=== PATIENT | female | born 1975 | race Caucasian/White ===

== ENCOUNTER 2016-08-12 02:41 | Emergency (ER) | payer MEDICARE ==
[2016-08-12 03:13] LABS: BASO # 0.1 10_X3_uL (0.0-0.1); BASO % 0.7 % (0.1-1.2); EOS # 0.1 10_X3_uL (0.0-0.4); EOS % 1.7 % (0.7-5.8); GRAN # 3.4 10_X3_uL (1.6-6.1); GRAN % 48.5 % (34.0-71.1); HEMATOCRIT 43.1 % (34-45); HEMOGLOBIN 13.9 g/dL (11.2-15.7); LYMPH # 2.5 10_X3_uL (1.2-3.7); LYMPH % 36.4 % (19.3-51.7); MEAN CORPUSCULAR HEMOGLOBIN 30.2 pg (27.0-33.0); MEAN CORPUSCULAR HGB CONC 32.3 g/dL (32.0-36.0); MEAN CORPUSCULAR VOLUME 93.7 fL (79-95); MEAN PLATELET VOLUME 9.4 fl (7.5-11.5); MONO # 0.9 10_X3_uL (0.2-0.9); MONO % 12.7 % (4.7-12.5); PLATELET COUNT 266 x10_3/uL (182-369); WHITE BLOOD COUNT 6.9 x10_3/uL (4.0-10.0)
[2016-08-12 03:13] LABS: URINE BILIRUBIN NEGATIVE (NEGATIVE); URINE BLOOD 1+ (NEGATIVE); URINE GLUCOSE (UA) NORMAL (NORMAL); URINE KETONE TRACE (NEGATIVE); URINE LEUKOCYTE ESTERASE TRACE (NEGATIVE); URINE NITRATE NEGATIVE (NEGATIVE); URINE PROTEIN TRACE (NEGATIVE); UROBILINOGEN NORMAL mg/dL (<1.0)
[2016-08-12 03:26] LABS: URINE BACTERIA FEW (NONE SEEN); URINE MUCUS TRACE; URINE SQUAMOUS EPITHELIAL CELL 0-10 /[HPF] (NONE SEEN)
[2016-08-12 03:29] LABS: ALBUMIN 4.4 gm/dL (3.4-5.0); ALKALINE PHOSPHATASE 66 U/L (50-136); ALT/SGPT 15 U/L (3.5-33.9); AST/SGOT 10 U/L (7.04-26.96); BLOOD UREA NITROGEN 19 mg/dL (7-18); CALCIUM 9.5 mg/dL (8.7-10.7); CARBON DIOXIDE 24 mmol/L (21-32); CREATININE 0.9 mg/dL (0.6-1.3); GLUCOSE,RANDOM 98 mg/dL (70-99); POTASSIUM 4.2 mmol/L (3.5-5.1); SODIUM 144 mmol/L (136-145); TOTAL PROTEIN 7.1 gm/dL (6.4-8.2)
== END 2016-08-12 05:30 | disposition home or self-care (01) ==
LOC: ER 02:41
PROVIDERS: General Practice
DX: N39.0 Urinary tract infection, site not specified (principal); R10.31 Right lower quadrant pain; R10.32 Left lower quadrant pain; R10.9 Unspecified abdominal pain; F11.21 Opioid dependence, in remission; F17.210 Nicotine dependence, cigarettes, uncomplicated; Z79.899 Other long term (current) drug therapy; R00.2 Palpitations
CPT/HCPCS: 36415; 80053; 81001; 81025; 85025; 87086; 87186; 96374; 99070; 99284-25; J7040; Q9967

== ENCOUNTER 2016-09-02 18:35 | Emergency (ER) | payer MEDICARE ==
[2016-09-02 19:11] LABS: BASO % 0.5 % (0.1-1.2); EOS # 0.1 10_X3_uL (0.0-0.4); EOS % 1.5 % (0.7-5.8); GRAN # 4.8 10_X3_uL (1.6-6.1); GRAN % 61.3 % (34.0-71.1); HEMATOCRIT 40.5 % (34-45); HEMOGLOBIN 13.9 g/dL (11.2-15.7); LYMPH # 2.2 10_X3_uL (1.2-3.7); LYMPH % 28.4 % (19.3-51.7); MEAN CORPUSCULAR HEMOGLOBIN 30.9 pg (27.0-33.0); MEAN CORPUSCULAR HGB CONC 34.3 g/dL (32.0-36.0); MEAN PLATELET VOLUME 8.8 fl (7.5-11.5); MONO # 0.7 10_X3_uL (0.2-0.9); MONO % 8.3 % (4.7-12.5); PLATELET COUNT 311 x10_3/uL (182-369); RED CELL DISTRIBUTION WIDTH 13.6 % (11.7-14.4); WHITE BLOOD COUNT 7.9 x10_3/uL (4.0-10.0)
[2016-09-02 19:26] LABS: ALBUMIN 4.2 gm/dL (3.4-5.0); ALKALINE PHOSPHATASE 76 U/L (50-136); ALT/SGPT 37 U/L (3.5-33.9); AST/SGOT 34 U/L (7.04-26.96); BILIRUBIN,TOTAL 0.91 mg/dL (0.0-1.0); BLOOD UREA NITROGEN 13 mg/dL (7-18); CALCIUM 9.2 mg/dL (8.7-10.7); CARBON DIOXIDE 25 mmol/L (21-32); CREATININE 0.7 mg/dL (0.6-1.3); GLUCOSE,RANDOM 110 mg/dL (70-99); POTASSIUM 3.2 mmol/L (3.5-5.1); SODIUM 139 mmol/L (136-145); TOTAL PROTEIN 6.9 gm/dL (6.4-8.2)
[2016-09-02 20:09] LABS: URINE BILIRUBIN NEGATIVE (NEGATIVE); URINE BLOOD 3+ (NEGATIVE); URINE GLUCOSE (UA) NORMAL (NORMAL); URINE KETONE NEGATIVE (NEGATIVE); URINE LEUKOCYTE ESTERASE TRACE (NEGATIVE); URINE NITRATE POSITIVE (NEGATIVE); URINE PROTEIN TRACE (NEGATIVE)
[2016-09-02 20:23] LABS: URINE RBC >20 /[HPF] (0-2)
[2016-09-02 20:24] LABS: URINE BACTERIA 2+ (NONE SEEN); URINE SQUAMOUS EPITHELIAL CELL 0-10 /[HPF] (NONE SEEN)
== END 2016-09-02 23:08 | disposition home or self-care (01) ==
LOC: ER 18:35
PROVIDERS: Emergency Medicine
DX: N30.80 Other cystitis without hematuria (principal); E87.6 Hypokalemia; F19.90 Other psychoactive substance use, unspecified, uncomplicated; F17.210 Nicotine dependence, cigarettes, uncomplicated; Z88.1 Allergy status to other antibiotic agents; Z88.0 Allergy status to penicillin
CPT/HCPCS: 36415; 80053; 80307; 81001; 83880; 84703; 85025; 87086; 87186; 96361; 96374; 99070; 99284-25